=== PATIENT | male | born 1960 | race Caucasian/White ===

== ENCOUNTER 2017-11-21 23:23 | Observation (INO) | payer OTHER ==
[~2017-11-21] VITALS: Ht 188 cm; Wt 79.2 kg
[~2017-11-21 23:23] MED LIST: ATOR40TA PO; Aspirin EC81 MG PO; CIPR500 PO; CLOP75 PO; CYCL10 PO; GABA300 PO; HYDR1TAB94 PO; INSULANPEN SC; LISI5 PO; MELO7.5 PO; METF500C PO; METO25 PO; NAPR375 PO; NITR.4SL SL; Novolog Fl100 UNIT/1 SC; Novolog100 UNIT/2 SC; TERA5 PO
[2017-11-21] MEDS ORDERED: ELIQUIS5 MG PO (23:57)
[2017-11-21] MEDS ORDERED: PAIN RELIEVER500 MG PO (23:57)
[2017-11-21] MEDS ORDERED: OXYC5 PO (23:58)
[2017-11-21] MEDS ORDERED: Melatonin PO (23:58)
[2017-11-22 00:13] LABS: BASOPHILS ABSOLUTE AUTO 0.06 K/mm3 (0.00-0.23); BASOPHILS PERCENT AUTO 1 % (0-2); EOSINOPHILS ABSOLUTE AUTO 0.31 K/mm3 (0.00-0.68); EOSINOPHILS PERCENT AUTO 4 % (0-6); Hematocrit 40.6 % (37.0-53.0); Hemoglobin 13.7 g/dL (13.5-17.5); IMMATURE GRAN ABSOLUTE AUTO 0.05 K/mm3 (0.00-0.10); IMMATURE GRAN PERCENT AUTO 1 % (0-1); LYMPHOCYTES ABSOLUTE AUTO 2.25 K/mm3 (0.84-5.20); LYMPHOCYTES PERCENT AUTO 29 % (21-46); MONOCYTES ABSOLUTE AUTO 0.58 K/mm3 (0.16-1.47); MONOCYTES PERCENT AUTO 8 % (4-13); Mean Corpuscular HGB 29.8 pg (26.0-34.0); Mean Corpuscular HGB Conc 33.7 g/dL (31.5-36.5); Mean Corpuscular Volume 88 fL (80-100); Mean Platelet Volume 11.1 fL (9.1-12.4); NEUTROPHILS ABSOLUTE AUTO 4.42 K/mm3 (1.96-9.15); NEUTROPHILS PERCENT AUTO 58 % (41-73); Platelet Count 205 K/mm3 (150-400); RDW Coefficient Variation 14.2 % (11.7-14.2); RDW Standard Deviation 45.4 fL (35.1-46.3); White Blood Cell Count 7.67 K/mm3 (4.00-11.30)
[2017-11-22 00:33] LABS: Alanine Aminotransfer (ALT/SGP 35 U/L (12-78); Albumin, Blood 4.1 g/dL (3.4-5.0); Albumin/Globulin Ratio 1.2 (0.8-1.8); Alk Phos 104 U/L (50-136); Anion Gap 9 mmol/L (6-16); Aspartate Aminotrans (AST/SGOT 16 U/L (12-37); Bilirubin, Total 0.7 mg/dL (0.1-1.0); Blood Urea Nitrogen 11 mg/dL (8-24); Bun/Creatinine Ratio 14.4 (12.0-20.0); CO2, Blood 25 mmol/L (21-32); Calcium, Blood 8.9 mg/dL (8.5-10.1); Chloride, Blood 108 mmol/L (98-108); Creatinine, Blood 0.76 mg/dL (0.60-1.20); Globulin, Blood 3.5 g/dL (2.2-4.0); Glomerular Filtration Rate >60 (60-); Glucose, Blood 83 mg/dL (70-99); Potassium, Blood 3.7 mmol/L (3.5-5.5); Sodium, Blood 142 mmol/L (136-145); Total Protein, Blood 7.6 g/dL (6.4-8.2); Troponin I <0.015 ng/mL (0.000-0.040)
[2017-11-22 02:22] LABS: CPK Creatine Kinase 91 U/L (39-308)
[2017-11-22 04:13] LABS: BASOPHILS ABSOLUTE AUTO 0.03 K/mm3 (0.00-0.23); BASOPHILS PERCENT AUTO 0 % (0-2); EOSINOPHILS ABSOLUTE AUTO 0.22 K/mm3 (0.00-0.68); EOSINOPHILS PERCENT AUTO 3 % (0-6); Hematocrit 35.9 % (37.0-53.0); Hemoglobin 12.4 g/dL (13.5-17.5); IMMATURE GRAN ABSOLUTE AUTO 0.05 K/mm3 (0.00-0.10); IMMATURE GRAN PERCENT AUTO 1 % (0-1); LYMPHOCYTES ABSOLUTE AUTO 1.44 K/mm3 (0.84-5.20); LYMPHOCYTES PERCENT AUTO 21 % (21-46); MONOCYTES ABSOLUTE AUTO 0.45 K/mm3 (0.16-1.47); MONOCYTES PERCENT AUTO 6 % (4-13); Mean Corpuscular HGB 30.4 pg (26.0-34.0); Mean Corpuscular HGB Conc 34.5 g/dL (31.5-36.5); Mean Corpuscular Volume 88 fL (80-100); Mean Platelet Volume 11.2 fL (9.1-12.4); NEUTROPHILS ABSOLUTE AUTO 4.84 K/mm3 (1.96-9.15); NEUTROPHILS PERCENT AUTO 69 % (41-73); Platelet Count 174 K/mm3 (150-400); RDW Coefficient Variation 14.2 % (11.7-14.2); RDW Standard Deviation 45.8 fL (35.1-46.3); Red Blood Cell Count 4.08 M/mm3 (4.30-5.90); White Blood Cell Count 7.03 K/mm3 (4.00-11.30)
[2017-11-22 04:35] LABS: Alanine Aminotransfer (ALT/SGP 30 U/L (12-78); Albumin, Blood 3.6 g/dL (3.4-5.0); Albumin/Globulin Ratio 1.2 (0.8-1.8); Alk Phos 81 U/L (50-136); Anion Gap 9 mmol/L (6-16); Aspartate Aminotrans (AST/SGOT 16 U/L (12-37); Bilirubin, Total 0.8 mg/dL (0.1-1.0); Blood Urea Nitrogen 10 mg/dL (8-24); CO2, Blood 25 mmol/L (21-32); Calcium, Blood 8.4 mg/dL (8.5-10.1); Chloride, Blood 107 mmol/L (98-108); Creatinine, Blood 0.71 mg/dL (0.60-1.20); Globulin, Blood 2.9 g/dL (2.2-4.0); Glomerular Filtration Rate >60 (60-); Glucose, Blood 85 mg/dL (70-99); Potassium, Blood 3.7 mmol/L (3.5-5.5); Sodium, Blood 141 mmol/L (136-145); Total Protein, Blood 6.5 g/dL (6.4-8.2)
[2017-11-22 08:52] LABS: CPK Creatine Kinase 68 U/L (39-308); Troponin I <0.015 ng/mL (0.000-0.040)
[2017-11-22] MEDS ORDERED: HYDR1TAB94 PO (14:58)
[2017-11-22] MEDS ORDERED: Aspirin EC81 MG PO ×2 (15:06→15:07)
[2017-11-22] MEDS ORDERED: LOW DOSE ASPIRI81 MG PO (15:08)
[2018-07-18] MEDS ORDERED: OXYC10TA19 PO (18:54)
[2018-07-18] MEDS ORDERED: TRAZ100 PO (18:55)
== END 2017-11-22 15:23 | disposition home or self-care (01) ==
LOC: ER 23:23 → PCU 23:24
PROVIDERS: Emergency Medicine; Internal Medicine
DX: R07.89 Other chest pain (principal); E11.40 Type 2 diabetes mellitus with diabetic neuropathy, unspecified; G89.29 Other chronic pain; M25.511 Pain in right shoulder; M79.601 Pain in right arm; E78.5 Hyperlipidemia, unspecified; I10 Essential (primary) hypertension; I25.10 Atherosclerotic heart disease of native coronary artery without angina pectoris; R06.02 Shortness of breath; R05 Cough; R94.31 Abnormal electrocardiogram [ECG] [EKG]; Z95.5 Presence of coronary angioplasty implant and graft; Z95.1 Presence of aortocoronary bypass graft; Z79.4 Long term (current) use of insulin; Z79.84 Long term (current) use of oral hypoglycemic drugs; Z79.899 Other long term (current) drug therapy; Z79.01 Long term (current) use of anticoagulants; Z88.6 Allergy status to analgesic agent
CPT/HCPCS: 36415; 71046; 80053; 82550; 82947; 84484; 85025; 85379; 93005; 93010; 93971; 96372; 96374; 96375; 96376; 99285; G0378; J1170; J1650; J1815; J2270; J2405; J3010

== ENCOUNTER 2018-01-26 01:06 | Emergency (ER) | payer OTHER ==
[~2018-01-26] VITALS: Ht 188 cm; Wt 82.5 kg
[~2018-01-26 01:06] MED LIST changes: +ELIQUIS5 MG PO; +LOW DOSE ASPIRI81 MG PO; +METF500 PO; -METF500C PO; +Melatonin PO; +OXYC5 PO; +PAIN RELIEVER500 MG PO
[2018-01-26] MEDS ORDERED: CYCL10 PO (02:06)
== END 2018-01-26 02:18 | disposition home or self-care (01) ==
LOC: ER 01:06
DX: M43.6 Torticollis (principal); E11.9 Type 2 diabetes mellitus without complications; I25.10 Atherosclerotic heart disease of native coronary artery without angina pectoris; Z88.6 Allergy status to analgesic agent; Z79.899 Other long term (current) drug therapy; Z79.4 Long term (current) use of insulin; Z79.82 Long term (current) use of aspirin; Z87.891 Personal history of nicotine dependence
CPT/HCPCS: 99283

== ENCOUNTER 2019-04-26 23:51 | Emergency (ER) | payer OTHER ==
[~2019-04-26] VITALS: Ht 188 cm; Wt 81.7 kg
[~2019-04-26 23:51] MED LIST changes: -METF500 PO; +METF500C PO; +OXYC10TA19 PO; +TRAZ100 PO
[2019-04-27] MEDS ORDERED: Mupirocin22 GM TOP (05:05)
== END 2019-04-27 05:35 | disposition home or self-care (01) ==
LOC: ER 23:51
DX: L73.9 Follicular disorder, unspecified (principal); E11.9 Type 2 diabetes mellitus without complications; Z95.1 Presence of aortocoronary bypass graft; Z87.891 Personal history of nicotine dependence; Z88.6 Allergy status to analgesic agent
CPT/HCPCS: 99283

== ENCOUNTER 2021-02-05 19:25 | Emergency (ER) | payer OTHER ==
[~2021-02-05] VITALS: Ht 177.8 cm; Wt 74.8 kg
[~2021-02-05 19:25] MED LIST changes: +Mupirocin22 GM TOP
== END 2021-02-05 21:34 | disposition home or self-care (01) ==
LOC: ER 19:25
DX: M79.672 Pain in left foot (principal); R23.8 Other skin changes; E11.9 Type 2 diabetes mellitus without complications; E78.5 Hyperlipidemia, unspecified; I25.810 Atherosclerosis of coronary artery bypass graft(s) without angina pectoris; Z88.6 Allergy status to analgesic agent; Z79.4 Long term (current) use of insulin; Z79.82 Long term (current) use of aspirin; Z87.891 Personal history of nicotine dependence; Z95.1 Presence of aortocoronary bypass graft
CPT/HCPCS: 73630; 99283-25

== ENCOUNTER → 2021-02-11 | Outpatient (CLI) | payer OTHER | END | disposition home or self-care (01) | LOC: LAB SHORT 18:53 → LAB 18:53 | DX: B02.9 Zoster without complications (principal) | CPT/HCPCS: 87070; 87205; 87252; 87254 ==

== ENCOUNTER → 2021-04-26 | Outpatient (CLI) | payer OTHER ==
[2021-04-26 19:41] LABS: BASOPHILS ABSOLUTE AUTO 0.07 K/mm3 (0.00-0.23); BASOPHILS PERCENT AUTO 1 % (0-2); EOSINOPHILS ABSOLUTE AUTO 0.18 K/mm3 (0.00-0.68); EOSINOPHILS PERCENT AUTO 3 % (0-6); Hematocrit 42.1 % (37.0-53.0); Hemoglobin 14.6 g/dL (13.5-17.5); IMMATURE GRAN ABSOLUTE AUTO 0.02 K/mm3 (0.00-0.10); IMMATURE GRAN PERCENT AUTO 0 % (0-1); LYMPHOCYTES ABSOLUTE AUTO 2.07 K/mm3 (0.84-5.20); LYMPHOCYTES PERCENT AUTO 36 % (21-46); MONOCYTES ABSOLUTE AUTO 0.44 K/mm3 (0.16-1.47); MONOCYTES PERCENT AUTO 8 % (4-13); Mean Corpuscular HGB 31.5 pg (26.0-34.0); Mean Corpuscular HGB Conc 34.7 g/dL (31.5-36.5); Mean Corpuscular Volume 91 fL (80-100); Mean Platelet Volume 12.8 fL (9.1-12.4); NEUTROPHILS ABSOLUTE AUTO 3.04 K/mm3 (1.96-9.15); NEUTROPHILS PERCENT AUTO 52 % (41-73); Platelet Count 195 K/mm3 (150-400); RDW Coefficient Variation 12.4 % (11.7-14.2); RDW Standard Deviation 41.3 fL (35.1-46.3); Red Blood Cell Count 4.63 M/mm3 (4.30-5.90); White Blood Cell Count 5.82 K/mm3 (4.00-11.30)
[2021-04-26 20:22] LABS: Alanine Aminotransfer (ALT/SGP 38 U/L (12-78); Albumin/Globulin Ratio 1.4 (0.8-1.8); Alk Phos 114 U/L (50-136); Anion Gap 3 mmol/L (6-16); Aspartate Aminotrans (AST/SGOT 25 U/L (12-37); Bilirubin, Total 1.1 mg/dL (0.1-1.0); Blood Urea Nitrogen 20 mg/dL (8-24); Bun/Creatinine Ratio 19.8 (12.0-20.0); CO2, Blood 28 mmol/L (21-32); Chloride, Blood 108 mmol/L (98-108); Creatinine, Blood 1.01 mg/dL (0.60-1.20); Globulin, Blood 2.9 g/dL (2.2-4.0); Glomerular Filtration Rate >60 (60-); Glucose, Blood 308 mg/dL (70-99); Potassium, Blood 4.4 mmol/L (3.5-5.5); Sodium, Blood 139 mmol/L (136-145); Thyroid Stimulating Hormone 0.864 uIU/mL (0.360-4.800); Total Protein, Blood 6.9 g/dL (6.4-8.2)
== END | disposition home or self-care (01) ==
LOC: LAB SHORT 16:00 → LAB 16:00
PROVIDERS: Nurse Practitioner Family
DX: I10 Essential (primary) hypertension (principal); R53.83 Other fatigue
CPT/HCPCS: 80053; 84443; 85025

== ENCOUNTER 2021-05-15 11:01 | Emergency (ER) | payer OTHER ==
[~2021-05-15] VITALS: Ht 188 cm; Wt 79.4 kg
[2021-05-15 11:55] LABS: BASOPHILS ABSOLUTE AUTO 0.05 K/mm3 (0.00-0.23); BASOPHILS PERCENT AUTO 1 % (0-2); EOSINOPHILS ABSOLUTE AUTO 0.13 K/mm3 (0.00-0.68); EOSINOPHILS PERCENT AUTO 2 % (0-6); Hematocrit 43.3 % (37.0-53.0); IMMATURE GRAN ABSOLUTE AUTO 0.07 K/mm3 (0.00-0.10); IMMATURE GRAN PERCENT AUTO 1 % (0-1); LYMPHOCYTES ABSOLUTE AUTO 2.22 K/mm3 (0.84-5.20); LYMPHOCYTES PERCENT AUTO 31 % (21-46); MONOCYTES ABSOLUTE AUTO 0.49 K/mm3 (0.16-1.47); MONOCYTES PERCENT AUTO 7 % (4-13); Mean Corpuscular HGB 30.4 pg (26.0-34.0); Mean Corpuscular HGB Conc 34.6 g/dL (31.5-36.5); Mean Corpuscular Volume 88 fL (80-100); Mean Platelet Volume 11.3 fL (9.1-12.4); NEUTROPHILS ABSOLUTE AUTO 4.16 K/mm3 (1.96-9.15); NEUTROPHILS PERCENT AUTO 58 % (41-73); Platelet Count 210 K/mm3 (150-400); RDW Coefficient Variation 11.9 % (11.7-14.2); RDW Standard Deviation 38.1 fL (35.1-46.3); Red Blood Cell Count 4.93 M/mm3 (4.30-5.90); White Blood Cell Count 7.12 K/mm3 (4.00-11.30)
[2021-05-15 12:19] LABS: Alanine Aminotransfer (ALT/SGP 39 U/L (12-78); Albumin, Blood 3.9 g/dL (3.4-5.0); Albumin/Globulin Ratio 1.3 (0.8-1.8); Alk Phos 91 U/L (50-136); Anion Gap 4 mmol/L (6-16); Aspartate Aminotrans (AST/SGOT 17 U/L (12-37); Bilirubin, Total 0.8 mg/dL (0.1-1.0); Blood Urea Nitrogen 18 mg/dL (8-24); Bun/Creatinine Ratio 22.6 (12.0-20.0); CO2, Blood 25 mmol/L (21-32); Chloride, Blood 107 mmol/L (98-108); Globulin, Blood 3.1 g/dL (2.2-4.0); Glomerular Filtration Rate >60 (60-); Glucose, Blood 212 mg/dL (70-99); Potassium, Blood 4.4 mmol/L (3.5-5.5); Sodium, Blood 136 mmol/L (136-145)
[2021-05-15] MEDS ORDERED: HYDCOR2.5C PR (15:27)
[2021-05-15] MEDS ORDERED: DOCU100 PO (15:27)
[2021-05-15] MEDS ORDERED: AMOCLA875 PO (15:27)
[2021-05-15] MEDS ORDERED: DERMAPHOR228 GM TOP (15:27)
== END 2021-05-15 15:53 | disposition home or self-care (01) ==
LOC: ER 11:01
PROVIDERS: Physician Assistant
DX: K64.9 Unspecified hemorrhoids (principal); L30.9 Dermatitis, unspecified; Z88.6 Allergy status to analgesic agent; E11.9 Type 2 diabetes mellitus without complications; Z87.891 Personal history of nicotine dependence
CPT/HCPCS: 36415; 80053; 85025; 99283; A9270

== ENCOUNTER → 2022-04-25 | Outpatient (CLI) | payer OTHER ==
[~2022-04-25] MED LIST changes: +AMOCLA875 PO; +DERMAPHOR228 GM TOP; +DOCU100 PO; +HYDCOR2.5C PR; +MOBIC15 MG PO; +Norco 10-325 T1 EACH PO; +Oxybutynin Chlo10 MG PO
[2022-04-25 15:49] LABS: BASOPHILS ABSOLUTE AUTO 0.06 K/mm3 (0.00-0.23); BASOPHILS PERCENT AUTO 1 % (0-2); EOSINOPHILS ABSOLUTE AUTO 0.24 K/mm3 (0.00-0.68); EOSINOPHILS PERCENT AUTO 3 % (0-6); Hematocrit 43.4 % (37.0-53.0); Hemoglobin 15.2 g/dL (13.5-17.5); IMMATURE GRAN PERCENT AUTO 5 % (0-1); LYMPHOCYTES ABSOLUTE AUTO 2.41 K/mm3 (0.84-5.20); LYMPHOCYTES PERCENT AUTO 27 % (21-46); MONOCYTES ABSOLUTE AUTO 0.64 K/mm3 (0.16-1.47); MONOCYTES PERCENT AUTO 7 % (4-13); Mean Corpuscular HGB 30.8 pg (26.0-34.0); Mean Corpuscular Volume 88 fL (80-100); Mean Platelet Volume 10.7 fL (9.1-12.4); NEUTROPHILS ABSOLUTE AUTO 5.13 K/mm3 (1.96-9.15); NEUTROPHILS PERCENT AUTO 58 % (41-73); Platelet Count 349 K/mm3 (150-400); RDW Coefficient Variation 12.3 % (11.7-14.2); RDW Standard Deviation 39.3 fL (35.1-46.3); Red Blood Cell Count 4.93 M/mm3 (4.30-5.90); White Blood Cell Count 8.88 K/mm3 (4.00-11.30)
[2022-04-25 16:01] LABS: Albumin/Globulin Ratio 1.2 (0.8-1.8); Bilirubin, Total 0.9 mg/dL (0.1-1.0); Calcium, Blood 9.5 mg/dL (8.5-10.1); Globulin, Blood 3.3 g/dL (2.2-4.0); Potassium, Blood 4.4 mmol/L (3.5-5.5); Total Protein, Blood 7.3 g/dL (6.4-8.2)
== END | disposition home or self-care (01) ==
LOC: LAB SHORT 15:42 → LAB 15:42
PROVIDERS: Physician Assistant
DX: R07.89 Other chest pain (principal)
CPT/HCPCS: 80053; 84484; 85025

== ENCOUNTER → 2022-05-14 | Outpatient (CLI) | payer OTHER ==
[2022-05-14 16:58] LABS: BASOPHILS ABSOLUTE AUTO 0.05 K/mm3 (0.00-0.23); BASOPHILS PERCENT AUTO 1 % (0-2); EOSINOPHILS ABSOLUTE AUTO 0.31 K/mm3 (0.00-0.68); EOSINOPHILS PERCENT AUTO 4 % (0-6); Hematocrit 41.8 % (37.0-53.0); Hemoglobin 14.4 g/dL (13.5-17.5); IMMATURE GRAN ABSOLUTE AUTO 0.04 K/mm3 (0.00-0.10); IMMATURE GRAN PERCENT AUTO 1 % (0-1); LYMPHOCYTES ABSOLUTE AUTO 2.01 K/mm3 (0.84-5.20); LYMPHOCYTES PERCENT AUTO 26 % (21-46); MONOCYTES ABSOLUTE AUTO 0.63 K/mm3 (0.16-1.47); MONOCYTES PERCENT AUTO 8 % (4-13); Mean Corpuscular HGB 30.4 pg (26.0-34.0); Mean Corpuscular HGB Conc 34.4 g/dL (31.5-36.5); Mean Corpuscular Volume 88 fL (80-100); Mean Platelet Volume 11.3 fL (9.1-12.4); NEUTROPHILS ABSOLUTE AUTO 4.79 K/mm3 (1.96-9.15); NEUTROPHILS PERCENT AUTO 61 % (41-73); Platelet Count 161 K/mm3 (150-400); RDW Coefficient Variation 12.4 % (11.7-14.2); RDW Standard Deviation 40.1 fL (35.1-46.3); Red Blood Cell Count 4.74 M/mm3 (4.30-5.90); White Blood Cell Count 7.83 K/mm3 (4.00-11.30)
[2022-05-14 17:17] LABS: Albumin, Blood 3.8 g/dL (3.4-5.0); Albumin/Globulin Ratio 1.1 (0.8-1.8); Bilirubin, Total 0.6 mg/dL (0.1-1.0); Bun/Creatinine Ratio 15.2 (12.0-20.0); Calcium, Blood 9.2 mg/dL (8.5-10.1); Creatinine, Blood 1.05 mg/dL (0.60-1.20); Free Thyroxine 0.94 ng/dL (0.70-1.60); Globulin, Blood 3.6 g/dL (2.2-4.0); Potassium, Blood 4.2 mmol/L (3.5-5.5); Thyroid Stimulating Hormone 1.036 uIU/mL (0.360-4.800); Total Protein, Blood 7.4 g/dL (6.4-8.2)
[2022-05-14 18:44] LABS: Triiodothyronine, Free 2.18 pg/mL (2.18-3.98)
[2022-05-15 12:32] LABS: Stool Occult Bld Immuno 1 Negative (NEGATIVE)
== END | disposition home or self-care (01) ==
LOC: LAB SHORT 16:52 → LAB 16:52
PROVIDERS: General Practice
DX: E11.9 Type 2 diabetes mellitus without complications (principal); R53.83 Other fatigue; R63.4 Abnormal weight loss
CPT/HCPCS: 80053; 83036; 84153; 84154; 84439; 84443; 84481; 85025; G0328

== ENCOUNTER 2022-06-01 08:04 | Day surgery (SDC) | payer OTHER ==
[~2022-06-01] VITALS: Ht 188 cm; Wt 78.3 kg
--- NOTE | 2022-06-01 09:36 | NUR ---
History, Chart, Medications and Allergies reviewed before start of procedure. Lungs clear T/O to Auscultation. Patient confirms NPO status and agrees with scheduled surgery. Pre-Op teaching done. Pt verbalizes understanding. Patient States Post-Procedure ride home has been arranged. Patient states colon prep results clear.
--- NOTE | 2022-06-01 09:53 | NUR ---
06/01/22 0953 Anton Whitten HISTORY, CHART, MEDICATIONS AND ALLERGIES REVIEWED BEFORE START OF PROCEDURE. PATIENT CONFIRMS NPO STATUS AND AGREES WITH SCHEDULED PROCEDURE. 3-LEAD EKG REVIEWED WITH PHYSICIAN PRIOR TO START OF PROCEDURE. MONITOR INTACT WITH CONTINUOUS PULSE OXIMETRY,CAPNOGRAPHY, 3-LEAD EKG, INTERMITTENT BP. SUPPLEMENTAL O2 TO BE TITRATED THROUGHOUT PROCEDURE TO MAINTAIN O2 SATURATION ABOVE 90%. PATIENT DETERMINED TO BE ASA APPROPRIATE FOR PROPOFOL SEDATION PRIOR TO START OF PROCEDURE BY DR. TANG.
--- NOTE | 2022-06-01 10:57 | NUR ---
PT ALERT AND ORIENTED.VSS. DISCHARGE INSTRUCTIONS GIVEN VERBALLY AND IN WRITTING.
== END 2022-06-01 10:50 | disposition home or self-care (01) ==
LOC: ORSCMMR 08:04 → ORD 09:30 → ORSCMMR 10:50
PROVIDERS: Internal Medicine Gastroenterology
PROC: 0DJD8ZZ Inspection of Lower Intestinal Tract, Via Natural or Artificial Opening Endoscopic (ICD-10-PCS; principal; 2022-06-01 09:30)
DX: Z12.11 Encounter for screening for malignant neoplasm of colon (principal); Z86.010 Personal history of colon polyps; I25.10 Atherosclerotic heart disease of native coronary artery without angina pectoris; J44.9 Chronic obstructive pulmonary disease, unspecified; E11.40 Type 2 diabetes mellitus with diabetic neuropathy, unspecified; F17.200 Nicotine dependence, unspecified, uncomplicated; Z79.82 Long term (current) use of aspirin; Z79.84 Long term (current) use of oral hypoglycemic drugs; Z79.899 Other long term (current) drug therapy
CPT/HCPCS: 82947; J2704; J7120

== ENCOUNTER → 2022-11-02 | Outpatient (CLI) | payer OTHER | END | disposition home or self-care (01) | LOC: LAB SHORT 12:59 → LAB 12:59 | DX: E11.9 Type 2 diabetes mellitus without complications (principal) | CPT/HCPCS: 36415; 83036 ==

== ENCOUNTER 2023-04-11 09:12 | Day surgery (SDC) | payer OTHER ==
[~2023-04-11] VITALS: Ht 188 cm; Wt 74.6 kg
[2023-04-11] VITALS (12 sets, daily range): BP systolic 94–139; BP diastolic 39–73
[~2023-04-11 09:12] MED LIST changes: +Aspir 8181 MG PO; +JARDIANCE10 MG PO; -LOW DOSE ASPIRI81 MG PO
--- NOTE | 2023-04-11 10:25 | NUR ---
Ambulatory in Day Surgery Patient confirms NPO status and agrees with scheduled surgery. Pre-Op teaching done. Pt verbalizes understanding. History, Chart, Medications and Allergies reviewed before start of procedure.
[2023-04-11] MEDS ORDERED: HYDROCODONE-AC1 EAC7 PO (10:40)
[2023-04-12 00:44] VITALS: BP 126/71
[2023-04-12 04:56] LABS: BASOPHILS ABSOLUTE AUTO 0.04 K/mm3 (0.00-0.23); BASOPHILS PERCENT AUTO 0 % (0-2); EOSINOPHILS ABSOLUTE AUTO 0.02 K/mm3 (0.00-0.68); EOSINOPHILS PERCENT AUTO 0 % (0-6); Hematocrit 35.5 % (37.0-53.0); Hemoglobin 12.1 g/dL (13.5-17.5); IMMATURE GRAN ABSOLUTE AUTO 0.07 K/mm3 (0.00-0.10); IMMATURE GRAN PERCENT AUTO 1 % (0-1); LYMPHOCYTES PERCENT AUTO 17 % (21-46); MONOCYTES ABSOLUTE AUTO 0.82 K/mm3 (0.16-1.47); MONOCYTES PERCENT AUTO 6 % (4-13); Mean Corpuscular HGB Conc 34.1 g/dL (31.5-36.5); Mean Corpuscular Volume 88 fL (80-100); Mean Platelet Volume 11.1 fL (9.1-12.4); NEUTROPHILS ABSOLUTE AUTO 9.99 K/mm3 (1.96-9.15); NEUTROPHILS PERCENT AUTO 76 % (41-73); Platelet Count 203 K/mm3 (150-400); RDW Coefficient Variation 12.9 % (11.7-14.2); RDW Standard Deviation 41.9 fL (35.1-46.3); Red Blood Cell Count 4.03 M/mm3 (4.30-5.90); White Blood Cell Count 13.14 K/mm3 (4.00-11.30)
[2023-04-12 05:16] VITALS: BP 118/71
[2023-04-12 05:33] LABS: Bun/Creatinine Ratio 20.1 (12.0-20.0); Calcium, Blood 8.2 mg/dL (8.5-10.1); Creatinine, Blood 0.94 mg/dL (0.60-1.20); Potassium, Blood 4.3 mmol/L (3.5-5.5)
--- NOTE | 2023-04-12 06:27 | NUR ---
SHIFT SUMMARY PT POD 0 RIGHT TOTAL HIP, PT HAS DONE WELL OVERNIGHT. PT AMBULATING WELL AND WITHOUT DIFFICULTY, VOIDING AND TOLERATING PO INTAKE. POST OP VITALS ARE STABLE. DRESSING C/D/I TO RIGHT HIP. PT PAIN MANAGED PER EMAR. NO ACUTE CHANGES OVERNIGHT. FIRE RISK ASSESSED THIS SHIFT. PT EDUCATED ON IGNITION RISK AND SOURCES. PT DENIES POSSESSING IGNITION SOURCES.
[2023-04-12 07:35] VITALS: BP 151/74
[2023-04-12] MEDS ORDERED: Percocet 5-3251 EACH PO (09:18)
--- NOTE | 2023-04-12 11:11 | NUR ---
DISCHARGE PT HAS CLEARED THERAPY. PAIN WELL CONTROLLED. EATING, DRINKING, & VOIDING WELL. DRSGS, SCRIPT, & POLAR PACK SENT w/ PT. ESCORTED OUT VIA W/C.
== END 2023-04-12 11:11 | disposition home or self-care (01) ==
LOC: ORSCMMR 09:12 → ORD 11:00 → ORSCMMR 11:00 → SURS 15:40 → ORSCMMR 04-12 11:11
PROVIDERS: Orthopaedic Surgery
PROC: 0SR90JZ Replacement of Right Hip Joint with Synthetic Substitute, Open Approach (ICD-10-PCS; principal; 2023-04-11 12:30)
DX: M16.11 Unilateral primary osteoarthritis, right hip (principal); I10 Essential (primary) hypertension; G47.33 Obstructive sleep apnea (adult) (pediatric); I25.2 Old myocardial infarction; E11.40 Type 2 diabetes mellitus with diabetic neuropathy, unspecified; Z79.4 Long term (current) use of insulin; Z79.84 Long term (current) use of oral hypoglycemic drugs; E78.5 Hyperlipidemia, unspecified; I48.91 Unspecified atrial fibrillation; Z79.899 Other long term (current) drug therapy; J44.9 Chronic obstructive pulmonary disease, unspecified; B19.20 Unspecified viral hepatitis C without hepatic coma
CPT/HCPCS: 36415; 72170; 80048; 82947; 85025; 97110; 97116; 97162; A9270; C1776; J0171; J0690; J0735; J1815; J1885; J2250; J2371; J2704; J2795; J3010; J3370; J7120

== ENCOUNTER → 2023-05-18 | Outpatient (CLI) | payer OTHER ==
[~2023-05-18] MED LIST changes: +HYDROCODONE-AC1 EAC7 PO; +Percocet 5-3251 EACH PO
[2023-05-18 14:59] LABS: Albumin, Blood 3.9 g/dL (3.4-5.0); Albumin/Globulin Ratio 1.3 (0.8-1.8); Bun/Creatinine Ratio 15.3 (12.0-20.0); Calcium, Blood 9.6 mg/dL (8.5-10.1); Creatinine, Blood 0.85 mg/dL (0.60-1.20); Globulin, Blood 3.1 g/dL (2.2-4.0); Potassium, Blood 3.9 mmol/L (3.5-5.5); Thyroid Stimulating Hormone 2.01 uIU/mL (0.360-4.800)
[2023-05-18 15:32] LABS: Creatinine, Urine Random 48.6 mg/dL (27.00-270.00)
[2023-05-18 16:03] LABS: Microalb/Creat Ratio UR, Rand 20.576 mg/g (0.000-30.000)
[2023-05-21 09:09] LABS: HEPATITIS C QUANTITATION HCV Not Detected IU/mL (.)
== END | disposition home or self-care (01) ==
LOC: LAB SHORT 09:57 → LAB 09:57
PROVIDERS: Nurse Practitioner Family
DX: Z11.59 Encounter for screening for other viral diseases (principal); E11.9 Type 2 diabetes mellitus without complications; R53.83 Other fatigue
CPT/HCPCS: 80053; 82043; 82570; 83036; 84443; 87522

== ENCOUNTER 2023-08-08 07:02 | Day surgery (SDC) | payer OTHER ==
[~2023-08-08] VITALS: Ht 188 cm; Wt 76.6 kg
[2023-08-08] MEDS ORDERED: Norco 5-325 Ta1 EACH PO (07:17)
[2023-08-08 07:30] VITALS: BP 105/64
--- NOTE | 2023-08-08 08:08 | NUR ---
Ambulatory in Day Surgery. History, Chart, Medications and Allergies reviewed before start of procedure. Lungs clear T/O to Auscultation. Patient confirms NPO status and agrees with scheduled surgery. Pre-Op teaching done. Pt verbalizes understanding. PT BELONGINGS PLACED UNDERNEATH GURNEY FOR SAFEKEEPING.
--- NOTE | 2023-08-08 08:52 | NUR ---
PT PROCEDURE CANCELLED PER MD DUE TO TAKING HIS JARDIANCE THIS AM. DR ALVAREZ SPOKE WITH PT ABOUT RESCHEDULING. PT VERBALIZES UNDERSTANDING, WILL FOLLOW UP WITH OFFICE TO RESCHEDULE. SPOUSE IN AGREEMENT. PER DR ALVAREZ, PT IS OKAY TO D/C HOME WITH PREOP MEDS GIVEN.
== END 2023-08-08 22:51 | disposition home or self-care (01) ==
LOC: ORSCMMR 07:02 → ORD 07:30 → ORSCMMR 08:15 → ORD 08:15 → ORSCMMR 22:51
DX: M16.12 Unilateral primary osteoarthritis, left hip (principal); Z53.9 Procedure and treatment not carried out, unspecified reason
CPT/HCPCS: 82947; A9270; J0171; J0690; J0735; J1885; J2250; J2704; J2795; J3010; J7120

== ENCOUNTER 2023-09-12 09:53 | Inpatient (IN) | payer OTHER ==
[~2023-09-12] VITALS: Ht 188 cm; Wt 76.9 kg
[2023-09-12] VITALS (17 sets, daily range): BP systolic 82–133; BP diastolic 45–98
[~2023-09-12 09:53] MED LIST changes: +ALBU90OI INH; +Norco 5-325 Ta1 EACH PO; +OMEP20ER PO
--- NOTE | 2023-09-12 11:03 | NUR ---
PT HAS TWO SMALL (LESS THAN 1CM) SITES ON SURGICAL SIDE HIP. ONE ABOVE THE ILIAC CREST THAT IS ALMOST 1CM IN LENGTH AND RED. SHOWS NO SIGNS OF INFECTION, NO SWELLING, NO DRAINAGE NOTED. THE SECOND SPOT APPEARS TO BE A SMALL INGROWN HAIR OR PIMPLE THAT IS ALMOST ENTIRELY HEALED BUT IS BELOW THE ILIAC CREST ON THE SAME SIDE.
--- NOTE | 2023-09-12 18:32 | NUR ---
SHIFT SUMMARY POD0 L ELENA, SPINAL BLOCK STILL IN EFFECT. POLAR PACK IN PLACE, SCD'S. VSS, IVF RUNNING TKO. MEDICATED PER EMAR FOR PAIN. TOLERATING PO INTAKE. AWAITING POST OP VOID. CALL LIGHT IN REACH
[2023-09-13] VITALS (21 sets, daily range): BP systolic 97–151; BP diastolic 60–81
[2023-09-13 04:54] LABS: BASOPHILS ABSOLUTE AUTO 0.03 K/mm3 (0.00-0.23); BASOPHILS PERCENT AUTO 0 % (0-2); EOSINOPHILS ABSOLUTE AUTO 0.03 K/mm3 (0.00-0.68); EOSINOPHILS PERCENT AUTO 0 % (0-6); Hematocrit 33.4 % (37.0-53.0); Hemoglobin 11.3 g/dL (13.5-17.5); IMMATURE GRAN ABSOLUTE AUTO 0.05 K/mm3 (0.00-0.10); IMMATURE GRAN PERCENT AUTO 0 % (0-1); LYMPHOCYTES ABSOLUTE AUTO 2.66 K/mm3 (0.84-5.20); LYMPHOCYTES PERCENT AUTO 22 % (21-46); MONOCYTES ABSOLUTE AUTO 1.01 K/mm3 (0.16-1.47); MONOCYTES PERCENT AUTO 8 % (4-13); Mean Corpuscular HGB 28.8 pg (26.0-34.0); Mean Corpuscular HGB Conc 33.8 g/dL (31.5-36.5); Mean Corpuscular Volume 85 fL (80-100); Mean Platelet Volume 11.2 fL (9.1-12.4); NEUTROPHILS ABSOLUTE AUTO 8.46 K/mm3 (1.96-9.15); NEUTROPHILS PERCENT AUTO 69 % (41-73); Platelet Count 224 K/mm3 (150-400); RDW Coefficient Variation 13.6 % (11.7-14.2); RDW Standard Deviation 42.1 fL (35.1-46.3); Red Blood Cell Count 3.93 M/mm3 (4.30-5.90); White Blood Cell Count 12.24 K/mm3 (4.00-11.30)
--- NOTE | 2023-09-13 05:01 | NUR ---
SHIFT SUMMARY PT POD 0 LEFT TOTAL HIP. PT HAS RESTED T/O THE NIGHT. PAIN MANAGED WITH MEDS PER EMAR. PT HAS AMBULATED, IS VOIDING AND TOLERATING PO INTAKE. DRESSING C/D/I TO LEFT HIP. POST OP VITALS STABLE. PLAN IS FOR DC TODAY.
[2023-09-13 05:15] LABS: Bun/Creatinine Ratio 18.3 (12.0-20.0); Calcium, Blood 8.5 mg/dL (8.5-10.1); Creatinine, Blood 0.93 mg/dL (0.60-1.20); Potassium, Blood 4.2 mmol/L (3.5-5.5)
--- NOTE | 2023-09-13 07:15 | NUR ---
RECVD BEDSIDE REPORT FROM PREVIOUS SHIFT RN, PT SITTING UP IN CHAIR, AWAKE, SPEAKING ON TELEPHONE. CALL LIGHT WITHIN REACH.
--- NOTE | 2023-09-13 07:51 | NUR ---
VERENICE WILKINSON PA WITH PT, REVIEWED X-RAYS, SHOW FRACTURE PERIPROSTHETIC OPERATIVE FEMUR, PT WILL REMAIN NWB, CT SCAN TODAY, POSSIBLE RETURN TO SURGERY FOR REPAIRY
--- NOTE | 2023-09-13 09:00 | NUR ---
PT HAD CT STUDIES, AWAITING RESULTS, WILL REMAIN NPO AND NWB
--- NOTE | 2023-09-13 13:46 | NUR ---
PT TRANSFERRED TO DAYSURGERY ON HIS OWN BED BY RN X 2
--- NOTE | 2023-09-13 14:15 | NUR ---
ASSUMED CARE, BEDSIDE REPORT RECEIVED BY KAMRYN Ko RN
--- NOTE | 2023-09-13 16:53 | NUR ---
1630-PT TRANSFERRED BACK TO ROOM ON OWN BED, A/O X 4, ADDITIONAL AQUACEL DRESSING DISTAL TO AQUACEL FROM SURGICAL INTERVENTION 09/12 C/D/I, NO DRAINAGE, SENSATION INTACT, CAPILLARY REFILL <3 SECONDS OPERATIVE LIMB. NO N/V, RATES PAIN AT 03/11, WILL PROVIDE ANALGESIA PER MAR, PROVIDED PO INTAKE, POST OP VS COMMENCED AND STABLE
--- NOTE | 2023-09-13 19:03 | NUR ---
shiftsummary: vss, no acute changes, tolerating PO intake, pain rated at 5/10 with analgesia per mar, family visited, voiding, dressing on operative hip c/d/i, sitting up in bed watching television
[2023-09-14 01:00] VITALS: BP 114/53
--- NOTE | 2023-09-14 05:14 | NUR ---
SHIFT SUMMARY POD 1 LEFT TOTAL HIP, POD 0 LEFT ORIF. PT HAS RESTED OF THE NIGHT. OPERATIVE SITE WNL, DRESSING C/D/I. PT DENIES N/T IN EXT. VOIDING AND TOLERATING PO INTAKE. PAIN HAS BEEN WELL CONTROLLED WITH MEDS PER EMAR. VITALS ARE STABLE. BED IN LOWEST POSITION, CALL LIGHT WITHIN REACH.
[2023-09-14 05:24] VITALS: BP 108/57
[2023-09-14 07:13] VITALS: BP 136/71
--- NOTE | 2023-09-14 14:51 | NUR ---
Pt. is awake in bed and welcomes my visit. Spouse is at bedside. Bot Spouse and Pt. are pleasant. Facilitated a life review and considered matters of surya and belief. During the visit Dr. Ewing came by to capture some of the Pts. medical history. Pt. verbalized for the doctor that he was unsettled by some of the weight loss he experienced while being treated for his diabetes. After the DrLeonor left, the Pt. was unsettled by his response to the DrsLeonro questions and verbalized concern that he had sounded rude. Listened with empathy and normalized the Pt. experience. Pt. dislpayed evidence of being engaged and aware. Prayed with Pt. Pt. verbalized gratitude for the spiritual care visit. gratitude for the spiritual care visit.
[2023-09-14 16:38] VITALS: BP 139/64
--- NOTE | 2023-09-14 19:11 | NUR ---
SHIFT SUMMARY PT IS POD#2 FROM L ELENA AND POD#1 FROM L HIP ORIF WITH DR. ALVAREZ. PAIN MANAGED WITH PO PAIN MEDICATION. PT IS A 1 ASSIST WITH GAIT BELT AND WALKER. PLAN FOR POSSIBLE HOME TOMORROW AFTER PHYSICAL THERAPY. PT PARTICIPATED WITH BEDSIDE REPORT, CALL LIGHT WITHIN REACH.
[2023-09-14 19:27] VITALS: BP 138/69
--- NOTE | 2023-09-15 04:48 | NUR ---
SHIFT SUMMARY POD3 LTHA, POD2 L HIP ORIF PT RESTED T/O NIGHT. PAIN MANAGED PER EMAR. VOIDING, USING THE URINAL. 1 PERSON ASST. WITH GAIT BELT AND WALKER. DRESSING TO L HIP C/D/I. VSS. POLAR PACK ON ALL NIGHT. NO OTHER CONCERNS AT THIS TIME. CALL LIGHT WITHIN REACH.
[2023-09-15 07:29] VITALS: BP 140/77
[2023-09-15] MEDS ORDERED: ASPI81CH PO (11:50)
[2023-09-15] MEDS ORDERED: Percocet 5-3251 EACH PO (11:50)
--- NOTE | 2023-09-15 12:11 | NUR ---
DISCHARGE NOTE: PATIENT WAS EDUCATED ON DISCHARGE INSTRUCTIONS. HE VERBALIZED UNDERSTANDING OF INSTRUCTIONS AND HAD NO FURTHER QUESTIONS AT THIS TIME. HARD PERSCRIPTIONS WERE PLACED IN DISCHARGE INSTRUCTIONS FOLDER. IV WAS TAKEN OUT AND WNL. PAIN IS MANAGED WITH PO PAIN MEDS. HIS LEFT HIP HAS X2 AQUACELS THAT ARE C/D/I. DENIES NUMBNESS AND TINGLING THROUGHOUT ALL EXTREMITIES. PATIENT IS TOLERATING PO INTAKE AND IS VOIDING. HE IS A SBA WITH FWW AND GAIT BELT. PATIENT HAS PERSONAL ITEMS IN THE ROOM GATHERED. HE IS WAITING FOR HIS FAMILY MEMBER TO COME PICK HIM UP AT 1400 LATER TODAY.
--- NOTE | 2023-09-15 13:54 | NUR ---
PATIENT IS BEING WHEELCHAIRED OUT TO HIS SPOUSES CAR TO BE TAKEN HOME. PATIENT HAS ALL PERSONAL BELONGINGS AND IS DRESSED.
--- NOTE | 2023-09-15 14:28 | NUR ---
WHEN PATIENT WAS BEING WHEELCHAIRED OUT TO HIS SPOUSES CAR THE PATIENT STATED "I'LL BE SEEING YOU GUYS IN A WEEK! I'M GOING TO PURPOSELY FALL SO I CAN COME BACK." THIS NURSE EDUCATED THE PATIENT REGARDING THE GOAL OF SAFE MOBILITY WITHOUT FALLS, AND HOW FALLING CAN COMPLICATE/EXTEND HEALING TIME AND WOULD POSSIBLY LEAD TO ANOTHER SURGERY. PATIENT STATED "I UNDERSTAND THAT BUT YOU STILL WILL SEE ME NEXT WEEK".
== END 2023-09-15 13:55 | disposition home or self-care (01) | DRG 481 ==
LOC: ORSCMMR 09:53 → SURS 09:53 → ORSCMMR 09:54 → ORD 11:00 → SURS 15:31 → ORSCMMR 09-14 13:15 → SURS 09-14 13:16
PROVIDERS: ADMIT Orthopaedic Surgery
PROC: 0QS704Z Reposition Left Upper Femur with Internal Fixation Device, Open Approach (ICD-10-PCS; principal; 2023-09-13 14:00)
DX: S72.002A Fracture of unspecified part of neck of left femur, initial encounter for closed fracture (principal); M97.02XA Periprosthetic fracture around internal prosthetic left hip joint, initial encounter; E11.9 Type 2 diabetes mellitus without complications; G47.33 Obstructive sleep apnea (adult) (pediatric); I10 Essential (primary) hypertension; R63.4 Abnormal weight loss; I25.10 Atherosclerotic heart disease of native coronary artery without angina pectoris; J44.9 Chronic obstructive pulmonary disease, unspecified; Z87.891 Personal history of nicotine dependence; Z88.8 Allergy status to other drugs, medicaments and biological substances; Z79.84 Long term (current) use of oral hypoglycemic drugs; Z79.4 Long term (current) use of insulin; Z79.899 Other long term (current) drug therapy; I25.2 Old myocardial infarction; Z98.890 Other specified postprocedural states; Z68.22 Body mass index [BMI] 22.0-22.9, adult
CPT/HCPCS: 36415; 72170; 72192; 73552; 80048; 82947; 85025; 94762; 97110; 97116; 97162; 97530; A9270; C1776; J0171; J0690; J0735; J1100; J1815; J1885; J2250; J2405; J2704; J2795; J3010; J7060; J7120

== ENCOUNTER 2023-09-24 02:32 | Emergency (ER) | payer OTHER ==
[~2023-09-24] VITALS: Ht 188 cm; Wt 77.1 kg
[~2023-09-24 02:32] MED LIST changes: +ASPI81CH PO
[2023-09-24 04:09] LABS: BASOPHILS ABSOLUTE AUTO 0.05 K/mm3 (0.00-0.23); BASOPHILS PERCENT AUTO 0 % (0-2); EOSINOPHILS ABSOLUTE AUTO 0.12 K/mm3 (0.00-0.68); EOSINOPHILS PERCENT AUTO 1 % (0-6); Hematocrit 30.4 % (37.0-53.0); Hemoglobin 10.2 g/dL (13.5-17.5); IMMATURE GRAN ABSOLUTE AUTO 0.11 K/mm3 (0.00-0.10); IMMATURE GRAN PERCENT AUTO 1 % (0-1); LYMPHOCYTES ABSOLUTE AUTO 1.31 K/mm3 (0.84-5.20); LYMPHOCYTES PERCENT AUTO 9 % (21-46); MONOCYTES ABSOLUTE AUTO 0.84 K/mm3 (0.16-1.47); MONOCYTES PERCENT AUTO 6 % (4-13); Mean Corpuscular HGB 28.4 pg (26.0-34.0); Mean Corpuscular HGB Conc 33.6 g/dL (31.5-36.5); Mean Corpuscular Volume 85 fL (80-100); Mean Platelet Volume 10.7 fL (9.1-12.4); NEUTROPHILS ABSOLUTE AUTO 11.61 K/mm3 (1.96-9.15); NEUTROPHILS PERCENT AUTO 83 % (41-73); Platelet Count 368 K/mm3 (150-400); RDW Coefficient Variation 13.2 % (11.7-14.2); RDW Standard Deviation 40.9 fL (35.1-46.3); Red Blood Cell Count 3.59 M/mm3 (4.30-5.90); White Blood Cell Count 14.04 K/mm3 (4.00-11.30)
[2023-09-24 04:21] LABS: Albumin, Blood 2.8 g/dL (3.4-5.0); Albumin/Globulin Ratio 0.7 (0.8-1.8); Bilirubin, Total 1.2 mg/dL (0.1-1.0); Bun/Creatinine Ratio 15.1 (12.0-20.0); Calcium, Blood 8.6 mg/dL (8.5-10.1); Creatinine, Blood 0.99 mg/dL (0.60-1.20); Globulin, Blood 3.9 g/dL (2.2-4.0); Magnesium, Blood 2.3 mg/dL (1.6-2.4); Total Protein, Blood 6.7 g/dL (6.4-8.2)
[2023-09-24 05:36] LABS: Influenza A, PCR NEGATIVE (NEGATIVE); Influenza B, PCR NEGATIVE (NEGATIVE); Resp Syncytial Virus, PCR NEGATIVE (NEGATIVE); SARS-Cov-2 (COVID-19) PCR, MMC NEGATIVE (NEGATIVE)
[2023-09-24 06:23] VITALS: BP 101/72
[2023-09-24] MEDS ORDERED: LIDO700A20 TOP (06:35)
== END 2023-09-24 06:45 | disposition home or self-care (01) ==
LOC: ER 02:32
PROVIDERS: Student in an Organized Health Care Education/Training Program
DX: S16.1XXA Strain of muscle, fascia and tendon at neck level, initial encounter (principal); R42 Dizziness and giddiness; Z96.642 Presence of left artificial hip joint; D72.829 Elevated white blood cell count, unspecified; Z79.4 Long term (current) use of insulin; Z79.899 Other long term (current) drug therapy; Z79.82 Long term (current) use of aspirin; X58.XXXA Exposure to other specified factors, initial encounter; Z88.8 Allergy status to other drugs, medicaments and biological substances
CPT/HCPCS: 0241U; 80053; 83735; 85025; 93005; 93010; 96374; 96375; 99284-25; A9270; J1885; J3010

== ENCOUNTER 2024-05-27 07:18 | Emergency (ER) | payer OTHER ==
[~2024-05-27] VITALS: Ht 188 cm; Wt 79.4 kg
[~2024-05-27 07:18] MED LIST changes: +LIDO700A20 TOP
[2024-05-27 07:25] VITALS: BP 132/65
[2024-05-27] MEDS ORDERED: Lidocaine 4% 1 Patch TOP ONE (07:40)
[2024-05-27] MEDS ORDERED: Ketorolac Tromethamine 30mg Vial IM ONE (07:40)
[2024-05-27] MEDS ORDERED: Acetaminophen 500 MG Tab PO ONE (07:40)
[2024-05-27] MEDS ORDERED: Morphine Sulfat15 MG PO (08:18)
[2024-05-27] MEDS ORDERED: Voltaren100 GM TOP (08:30)
== END 2024-05-27 08:41 | disposition home or self-care (01) ==
LOC: ER 07:18
DX: S20.212A Contusion of left front wall of thorax, initial encounter (principal); E11.9 Type 2 diabetes mellitus without complications; E78.5 Hyperlipidemia, unspecified; W07.XXXA Fall from chair, initial encounter; Z87.891 Personal history of nicotine dependence; Z79.82 Long term (current) use of aspirin; Z79.4 Long term (current) use of insulin; Z79.899 Other long term (current) drug therapy; Z88.6 Allergy status to analgesic agent
CPT/HCPCS: 71101; 96372; 99283-25; A9270; J1885

== ENCOUNTER → 2024-07-15 | Outpatient (CLI) | payer OTHER ==
[~2024-07-15] MED LIST changes: +Morphine Sulfat15 MG PO; +Voltaren100 GM TOP
[2024-07-15 20:25] LABS: Creatinine, Urine Random 56.9 mg/dL (27.00-270.00)
[2024-07-15 20:28] LABS: Microalb/Creat Ratio UR, Rand 13.814 mg/g (0.000-30.000); Microalbumin, Random Urine 7.86 mg/L (0.000-20.000)
== END | disposition home or self-care (01) ==
LOC: LAB SHORT 19:16 → LAB 19:16
PROVIDERS: Nurse Practitioner Family
DX: E11.8 Type 2 diabetes mellitus with unspecified complications (principal)
CPT/HCPCS: 82043; 82570